=== PATIENT | female | born 1975 | race Caucasian/White ===

== ENCOUNTER 2019-04-01 13:54 | Emergency (ER) | payer OTHER ==
[~2019-04-01] VITALS: Ht 160 cm; Wt 113.4 kg
[~2019-04-01 13:54] MED LIST: ALBU0.098 IH
[2019-04-01 14:03] VITALS: BP 206/94
[2019-04-01] MEDS: KETOROLAC 30 MG/ML VIAL IM ONE (14:36)
[2019-04-01] MEDS: LOSARTAN 25 MG TAB PO SCH (14:40)
[2019-04-01 16:02] VITALS: BP 166/89
[2019-04-02] MEDS ORDERED: LOSARTAN 25 MG TAB PO SCH (09:00)
== END 2019-04-01 15:53 | disposition home or self-care (01) ==
LOC: MED 13:54
DX: S82.301A Unspecified fracture of lower end of right tibia, initial encounter for closed fracture (principal); I10 Essential (primary) hypertension; E11.9 Type 2 diabetes mellitus without complications; F17.210 Nicotine dependence, cigarettes, uncomplicated; J45.909 Unspecified asthma, uncomplicated; Z79.899 Other long term (current) drug therapy; W01.0XXA Fall on same level from slipping, tripping and stumbling without subsequent striking against object, initial encounter; Y93.89 Activity, other specified; Y92.89 Other specified places as the place of occurrence of the external cause; Y99.8 Other external cause status
CPT/HCPCS: 29515; 73610; 73630; 96372; 99283; J1885; Q0092

== ENCOUNTER 2021-02-09 23:29 | Emergency (ER) | payer OTHER ==
[~2021-02-09] VITALS: Ht 160 cm; Wt 104.3 kg
[2021-02-09 23:36] VITALS: BP 164/109
--- NOTE | 2021-02-10 02:10 | NUR ---
PT AMBULATED TO BED 04
--- NOTE | 2021-02-10 02:22 | NUR ---
45 YO F BIB SELF WITH C/C 10/10 PAIN ON R HAND MIDDLE FINGER X3DAYS, SHARP AND PAIN COMES AND GOES. PT STATED SHE PULLED ON A HANG NAIL AND THE SWELLING APPEARED THE NEXT DAY. FINGER IS SWOLLEN, SENSISTIVE TO TOUCH, UNABLE TO BEND COMPLETELY. PT IS IN STABLE CONDITION. BED LOCKED IN LOWEST POSITION, SIDE RAILS X1. HX: HTN, ASTHMA, GERD RX: LOSARTAN, GENERIC FOR PRILOSEC AND ZYRTEC NKA
--- NOTE | 2021-02-10 02:45 | NUR ---
Dr. Humphries examining patient.
[2021-02-10] MEDS ORDERED: LIDOCAINE MPF 1% 10 MG/ML VIAL INJ ONE (02:55)
[2021-02-10] MEDS ORDERED: CLIN-178 PO (03:20)
[2021-02-10 03:24] VITALS: BP 164/109
--- NOTE | 2021-02-10 03:24 | NUR ---
Patient discharged with v/s stable. Written and verbal after care instructions given and explained. Patient alert, oriented and verbalized understanding of instructions. Ambulatory with steady gait. All questions addressed prior to discharge. ID band removed. Patient advised to follow up with PMD. Rx of CLINDAMYCIN given. Patient educated on indication of medication including possible reaction and side effects. Opportunity to ask questions provided and answered.
== END 2021-02-10 03:24 | disposition home or self-care (01) ==
LOC: MED 23:29
DX: L03.011 Cellulitis of right finger (principal); J45.909 Unspecified asthma, uncomplicated; E11.9 Type 2 diabetes mellitus without complications; I10 Essential (primary) hypertension; Z79.899 Other long term (current) drug therapy
CPT/HCPCS: 10060; 99283; J2001

== ENCOUNTER 2022-08-16 21:33 | Emergency (ER) | payer OTHER ==
[~2022-08-16] VITALS: Ht 160 cm; Wt 111.1 kg
[~2022-08-16 21:33] MED LIST changes: +CLIN300C52 PO
[2022-08-16 21:46] VITALS: BP 152/81
[2022-08-16] MEDS ORDERED: HYDROcodone/APAP 5/325 MG 1 TAB TAB PO ONE (22:55)
[2022-08-16] MEDS ORDERED: cefTRIAXone 1,000 MG in LIDOCAINE MPF 1% 2.1 ML IM ONE (22:55)
[2022-08-16] MEDS ORDERED: KETOROLAC 30 MG/ML VIAL IM ONE (22:55)
[2022-08-16] MEDS ORDERED: ACET-8905 PO (22:57)
[2022-08-16] MEDS ORDERED: NAPR-54 PO (22:57)
[2022-08-16] MEDS ORDERED: AMOX1TAB8 PO (22:57)
[2022-08-16] MEDS ORDERED: cefTRIAXone 1,000 MG VIAL ONE (23:17)
[2022-08-16] MEDS ORDERED: LIDOCAINE MPF 1% 5 ML ONE (23:18)
--- NOTE | 2022-08-16 23:20 | NUR ---
Patient in chair, A/Ox4, chest rise and fall symmetrical, no s/s of distress.
--- NOTE | 2022-08-16 23:25 | NUR ---
Dr. Linder speaking to patient.
[2022-08-16 23:45] VITALS: BP 135/74
== END 2022-08-16 23:46 | disposition home or self-care (01) ==
LOC: MED 21:33
DX: K04.7 Periapical abscess without sinus (principal); J45.909 Unspecified asthma, uncomplicated; I10 Essential (primary) hypertension; E11.9 Type 2 diabetes mellitus without complications; Z79.4 Long term (current) use of insulin; Z79.899 Other long term (current) drug therapy
CPT/HCPCS: 96372; 99284; J0696; J1885; J2001